=== PATIENT | male | born 1955 | race Two or more races ===

== ENCOUNTER 2021-10-09 00:23 | Emergency (ER) | payer SELFPAY ==
[~2021-10-09] VITALS: Ht 167.6 cm; Wt 77.1 kg
--- NOTE | 2021-10-09 00:50 | NUR ---
BIBS C/O EPIGASTRIC PAIN SINCE 8PM AFTER DINNER. PLACED COMFORTABLY IN BED. VITALS CHECKED. PATIENT IS AAOX4. PATIENT HAS NO CP, NO SOB.
--- NOTE | 2021-10-09 00:51 | NUR ---
URINE SAMPLE COLLECTED AND SENT TO LAB
--- NOTE | 2021-10-09 00:57 | NUR ---
SEEN BY DR DELACRUZ WITH ORDERS.
[2021-10-09] MEDS ORDERED: IV NS 0.9% 500 ML BAG IV ONE (01:00)
[2021-10-09] MEDS ORDERED: ONDANSETRON HCL/PF 4 MG/2 ML VIAL IVP ONE (01:00)
[2021-10-09] MEDS ORDERED: MORPHINE SULFATE INJ 2 MG/ML DISP.SYRIN IV ONE (01:00)
--- NOTE | 2021-10-09 01:00 | NUR ---
IV CANNULA G18 INSERTED ON LEFT AC. BLOOD DRAWN AND SENT TO LAB
--- NOTE | 2021-10-09 01:04 | NUR ---
EKG DONE AT BEDSIDE
[2021-10-09] MEDS ORDERED: ONDANSETRON HCL/PF 4 MG/2 ML VIAL ONE (01:07)
[2021-10-09] MEDS ORDERED: MORPHINE SULFATE INJ 2 MG/ML DISP.SYRIN ONE (01:08)
--- NOTE | 2021-10-09 01:15 | NUR ---
XRAY DONE AT BEDSIDE
--- NOTE | 2021-10-09 01:22 | NUR ---
PATIENT BEING WHEELED TO CT DEPT
[2021-10-09 01:32] LABS: BASOPHILS % (AUTO) 0.1 % (0.0-2.0); EOSINOPHILS % (AUTO) 1.5 % (0.0-6.0); HEMATOCRIT 42 % (39-51); HEMOGLOBIN 14.3 g/dL (13.5-17.5); LYMPHOCYTES # (AUTO) 0.9 K/uL (0.8-4.8); LYMPHOCYTES % (AUTO) 8.3 % (20.0-44.0); MEAN CORPUSCULAR HGB CONC 34 g/dl (31.0-36.0); MEAN CORPUSCULAR VOLUME 96 fL (80-96); MONOCYTES # (AUTO) 0.5 K/uL (0.1-1.30); MONOCYTES % (AUTO) 4.9 % (2.0-12.0); NEUTROPHILS # (AUTO) 9.3 K/uL (1.8-8.9); NEUTROPHILS % (AUTO) 85.2 % (43.0-81.0); PLATELET COUNT (AUTO) 305 K/uL (150-450); RED BLOOD CELL COUNT(AUTO) 4.39 MIL/uL (4.5-6.0); WHITE BLOOD COUNT (AUTO) 10.9 K/uL (4.3-11.0)
[2021-10-09 01:33] LABS: BILIRUBIN,URINE NEGATIVE (NEGATIVE); COLOR,URINE YELLOW (YELLOW); LEUKOCYTE ESTERASE ,URINE NEGATIVE (NEGATIVE); NITRITE, URINE NEGATIVE (NEGATIVE); PH,URINE 5.5 (5.0-8.0); PROTEIN,URINE NEGATIVE (NEGATIVE); UGLUCOSE NEGATIVE (NEGATIVE); UROBILINOGEN,URINE 0.2 EU/dL (0.2)
[2021-10-09 01:40] LABS: CALCIUM, SERUM 8.7 mg/dL (8.5-10.1); CARBON DIOXIDE 28 mmol/L (21-32); CHLORIDE 103 mmol/L (98-107); CREATININE 0.8 mg/dL (0.6-1.3); GLUCOSE 205 mg/dL (74-106); POTASSIUM 3.8 mmol/L (3.5-5.1); SODIUM SERUM 138 mmol/L (136-145); UREA NITROGEN, BLOOD 19 mg/dL (7-18)
[2021-10-09 01:46] LABS: ALANINE AMINOTRANSFERASE 35 U/L (12-78); ALBUMIN 3.4 g/dL (3.4-5.0); ALKALINE PHOSPHATASE 89 U/L (46-116); ASPARTATE AMINOTRANSFERASE 21 U/L (15-37); BILIRUBIN,DIRECT 0.1 mg/dL (0.0-0.2); BILIRUBIN,TOTAL 0.3 mg/dL (0.2-1.0); TOTAL PROTEIN, SERUM 8.1 g/dL (6.4-8.2)
[2021-10-09 02:31] LABS: BACTERIA,URINE Rare /HPF (None Seen); SQUAMOUS EPITHELIAL CELL,UR Few /HPF (None Seen); WBC,URINE 0-2 /HPF (0-3)
--- NOTE | 2021-10-09 02:51 | NUR ---
SPOKE TO SON AND GAVE HIM UPDATE. TUBE WINDER AT BEDSIDE FOR 2ND TROPONIN
--- NOTE | 2021-10-09 07:28 | NUR ---
REPORT GIVEN TO STANLEY VILLALOBOS
[2021-10-09 07:36] LABS: LIPASE 134 U/L (73-393)
[2021-10-09] MEDS ORDERED: FAMO-131 PO (08:06)
[2021-10-09] MEDS ORDERED: ONDA4TAB5 PO (08:06)
--- NOTE | 2021-10-09 08:20 | NUR ---
IV removed. Catheter intact and site benign. Pressure and 4x4 applied to site. No bleeding noted.Patient discharged to home in stable condition. Written and verbal after care instructions given. Patient verbalizes understanding of instruction.
[2021-10-09 08:21] VITALS: BP 152/94
== END 2021-10-09 08:22 | disposition home or self-care (01) ==
LOC: ER 00:29
DX: R10.13 Epigastric pain (principal); I10 Essential (primary) hypertension; Z79.899 Other long term (current) drug therapy
CPT/HCPCS: 99285; 74176; 96374; 71045; 96375; 93005; 85025; 80048; 83690; 80076; 81001; 36415; 84484 ×2; J2405; J7040; J2270